=== PATIENT | female | born 1945 | race Caucasian/White ===

== ENCOUNTER 2024-02-08 07:10 | Day surgery (SDC) | payer MEDICARE, SELFPAY ==
[2024-02-04 10:08] VITALS: BMI 28.8
--- NOTE | 2024-02-04 14:40 | HO.ANESPROP2 ---
Documented by User: Cassie Brown NP 02/05/24 09:06 HPI - Anesthesia Eval Consult details Narrative: 78yo F for Right Cataract Extraction IOL Insertion No previous cataract on record [facility] Past Medical History Medical History (Updated 02/04/24 @ 09:57 by Mellisa Wong, JAMES) Osteoarthritis Hypertension Hyperlipidemia IFG (impaired fasting glucose) Subclinical hypothyroidism Osteopenia Pre-diabetes Cataract Surgical History Surgical History (Updated 02/04/24 @ 09:58 by Mellisa Wong, RN) History of eyelid surgery Hx of arthroscopy of knee History of lumpectomy of left breast Social History Social History (Updated 02/04/24 @ 10:12 by Mellisa Wong, JAMES) Patient Tobacco Use Status: Never used Tobacco Use of substances other than those prescribed or required for medical reasons: No Advance Directives: No Advance Directives Information Provided: Yes Advance Directives on File: No 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 Allergies Allergy/AdvReac Type Severity Reaction Status Date / Time Sulfa (Sulfonamide Allergy Rash, Verified 02/08/24 07:17 Antibiotics) dermatitis Home Medications ?Medication ?Instructions ?Recorded ?Confirmed ?Last Taken ?Type alendronate 35 mg tablet 35 mg PO QWEEK 02/04/24 02/04/24 Unknown History amlodipine 10 mg tablet 10 mg PO DAILY 02/04/24 02/04/24 Unknown History atorvastatin 40 mg tablet 40 mg PO DAILY 02/04/24 02/04/24 Unknown History losartan 100 1 tab PO DAILY 02/04/24 02/04/24 Unknown History mg-hydrochlorothiazide 25 mg tablet multivitamin 1 tab PO DAILY 02/04/24 02/04/24 Unknown History Exam Height,Weight and Vital Signs: Height 5 ft 4 in Weight 76.204 kg Assessment and Plan Assessment Anesthesia Assessment: Chart Reviewed Documented by User: Robi Frye MD 02/08/24 07:55 [facility] Past Medical History Medical History (Updated 05/02/24 @ 09:57 by Mellisa Wong RN) Osteoarthritis Hypertension Hyperlipidemia IFG (impaired fasting glucose) Subclinical hypothyroidism Osteopenia Pre-diabetes Cataract Family History Family history of problems with anesthesia: No Surgical History Surgical History (Updated 02/04/24 @ 09:58 by Mellisa Wong RN) History of eyelid surgery Hx of arthroscopy of knee History of lumpectomy of left breast History of Problems with Anesthesia: No Social History Social History (Updated 02/04/24 @ 10:12 by Mellisa Wong RN) Patient Tobacco Use Status: Never used Tobacco Use of substances other than those prescribed or required for medical reasons: No Advance Directives: No Advance Directives Information Provided: Yes Advance Directives on File: No 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 Allergies Allergy/AdvReac Type Severity Reaction Status Date / Time Sulfa (Sulfonamide Allergy Rash, Verified 02/08/24 07:17 Antibiotics) dermatitis Home Medications ?Medication ?Instructions ?Recorded ?Confirmed ?Last Taken ?Type alendronate 35 mg tablet 35 mg PO QWEEK 02/04/24 02/04/24 Unknown History amlodipine 10 mg tablet 10 mg PO DAILY 02/04/24 02/04/24 Unknown History atorvastatin 40 mg tablet 40 mg PO DAILY 02/04/24 02/04/24 Unknown History losartan 100 1 tab PO DAILY 02/04/24 02/04/24 Unknown History mg-hydrochlorothiazide 25 mg tablet multivitamin 1 tab PO DAILY 02/04/24 02/04/24 Unknown History Exam Airway Mallampati Class: II TM Dist: >3cm Neck ROM: Full Denture: Upper Partial: Lower Loose/Missing/Broken Teeth: No Heart: rrr Lungs: cta Assessment and Plan Assessment Anesthesia Assessment: Anesthesia Plan Discussed Final Anesthetic Review Family History of Problems with Anesthesia: No History of Problems with Anesthesia: No NPO: Yes ASA Class: II Final Preanesthetic Review: No Changes in Pt Med Stat, Meds/Allgs Chart Reviewed, Consent Obtained/Reviewed and Anes Risks/Benef Reviewed Patient Risk: Low Procedure Risk: Low Anesthetic Plan Anesthetic Plan: MAC: Disposition: Standard PACU
[2024-02-08 07:23] VITALS: PULSE 71; RESP 18; TEMP 36.1; O2SAT 98
[2024-02-08 07:26] VITALS: BMI 28.3
[2024-02-08] MEDS: Lactated Ringers 500 ML 50 ML IV (08:12)
[2024-02-08] MEDS: Tetracaine HCl/PF 0.5% Oph Sol 4 ML DROPS 1 DROP EYE-RIGHT (08:12)
[2024-02-08] MEDS: Cyclopentolate 1 % Ophth Sol 2 ML DRPBTL 1 DROP EYE-RIGHT ×3 (08:13→08:19)
[2024-02-08] MEDS: Phenylephrine HCL 2.5% Oph SoL 2 ML BOTTLE 1 DROP EYE-RIGHT ×3 (08:13→08:18)
[2024-02-08] MEDS: Ketorolac Tromethamine 0.5% Op 10 ML DROPS 1 DROP EYE-RIGHT ×3 (08:13→08:18)
[2024-02-08] MEDS: Tropicamide 1 % Ophth Sol 3 ML BTL 1 DROP EYE-RIGHT ×3 (08:14→08:19)
--- NOTE | 2024-02-08 08:58 | MHC.SHP ---
Pre-Procedural Eval Section A - 24 Hr Update-Section A only Date of Service: 02/08/24 The patient is an INPATIENT: No Changes since office visit: No Cold of Flu in the past 2 weeks, No New Medical Problems, No Changes in Medication and No Patient answered all questions The patient has been examined within 24 hours of the surgical procedure. The History & Physical has been completed within 30 days and I have reviewed it.: Yes Section B - Complete if H&P > 30 days Chief Complaint: Age-related nuclear cataract, right eye Allergies: Allergies Allergy/AdvReac Type Severity Reaction Status Date / Time Sulfa (Sulfonamide Allergy Rash, Verified 02/08/24 07:17 Antibiotics) dermatitis Plan Diagnosis/Plan: Unchanged I have reviewed the history and physical and performed a pertinent physical examination on my patient. No changes have occurred unless specified. Time Spent With Patient Time: Total time managing care of this patient today ____ minutes.
--- NOTE | 2024-02-08 08:59 | P.PCNO_ITS ---
Ophthalmology Procedure Procedure Date of Service: 02/08/24 Ophthalmology Viscoelastic: Healon Duet Dual Pack Pro Ophthalmology Lenses: IOL Acrysof MP - MA60AC (23.5) Procedure Notes: PREOPERATIVE DIAGNOSIS: Decreased visual acuity right eye secondary to cataract POSTOPERATIVE DIAGNOSIS: Same PROCEDURE: Right cataract extraction with intraocular lens insertion SURGEON: Sonu Gallo M.D. ANESTHESIA: Topical/MAC ESTIMATED BLOOD LOSS: None COMPLICATIONS: None After obtaining informed consent, the patient was brought to the operating room suite and placed in the supine position. After adequate sedation per anesthesia, topical drops of Tetracaine were given to the right eye. The eye was then prepped and draped in the usual sterile fashion. The operating room microscope was then positioned over the operative eye and a lid speculum placed. A paracentesis was created. Viscoelastic was then instilled into the anterior chamber. A three plane incision was then created temporally, utilizing a 2.85 mm keratome. Capsulotomy forceps were then utilized to create a circular tear capsulotomy. Hydrodissection and hydrodelineation were carried out until adequate mobilization of the nucleus occurred. Phacoemulsification was then utilized to remove the dense central nu cleus followed by removal of the cortical material utilizing the automated aspiration irrigation unit. Viscoelastic was instilled into the posterior capsular bag followed by placement of a posterior chamber intraocular lens without difficulty. The residual Viscoelastic was then removed utilizing the automated IA machine. The wound was checked and found to be watertight. The patient tolerated the procedure well and the lid speculum was removed. Intracameral injection of Vigamox 0.1 mL followed by a subtenon injection of Kenalog-40 0.2 mL were administered. The patient will be seen in the a.m.
[2024-02-08 09:24] VITALS: BP 153/57; PULSE 66; RESP 18; TEMP 36.3; O2SAT 99
[2024-02-08 09:39] VITALS: BP 147/53; PULSE 63; RESP 20; TEMP 36.3; O2SAT 97
== END 2024-02-08 09:47 | disposition home or self-care (01) ==
PROVIDERS: PCP Family Medicine; Visit Provider Ophthalmology
PROC: (CPT 66985; principal; 2024-02-08 08:20)
DX: H25.11 Age-related nuclear cataract, right eye (principal); H52.4 Presbyopia; H40.033 Anatomical narrow angle, bilateral; H52.03 Hypermetropia, bilateral; H35.363 Drusen (degenerative) of macula, bilateral; H18.413 Arcus senilis, bilateral; I10 Essential (primary) hypertension; Z88.2 Allergy status to sulfonamides; Z79.899 Other long term (current) drug therapy
CPT/HCPCS: 66984; J2250; J3010; J3301; V2630

== ENCOUNTER 2024-02-15 06:55 | Day surgery (SDC) | payer MEDICARE, SELFPAY ==
[2024-02-04 10:23] VITALS: BMI 28.8
--- NOTE | 2024-02-11 15:22 | HO.ANESPROP2 ---
Documented by User: Cassie Brown NP 02/11/24 15:23 HPI - Anesthesia Eval Consult details Narrative: 78yo F for Left Cataract Extraction IOL Insertion s/p Right eye 02/08/24: Fent 50, Midaz 1 PMFSH Past Medical History Medical History Osteoarthritis Hypertension Hyperlipidemia IFG (impaired fasting glucose) Subclinical hypothyroidism Osteopenia Pre-diabetes Cataract Family History Family history of problems with anesthesia: No Surgical History Surgical History History of eyelid surgery Hx of arthroscopy of knee History of lumpectomy of left breast History of Problems with Anesthesia: No Social History Social History Patient Tobacco Use Status: Never used Tobacco Use of substances other than those prescribed or required for medical reasons: No Advance Directives: No Advance Directives Information Provided: Yes Advance Directives on File: No 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[employer] Allergies Allergy/AdvReac Type Severity Reaction Status Date / Time Sulfa (Sulfonamide Allergy Rash, Verified 02/15/24 07:44 Antibiotics) dermatitis Home Medications ?Medication ?Instructions ?Recorded ?Confirmed ?Last Taken ?Type alendronate 35 mg tablet 35 mg PO QWEEK 02/04/24 02/15/24 02/14/24 History amlodipine 10 mg tablet 10 mg PO DAILY 02/04/24 02/15/24 02/14/24 History atorvastatin 40 mg tablet 40 mg PO DAILY 02/04/24 02/15/24 02/14/24 History losartan 100 1 tab PO DAILY 02/04/24 02/15/24 02/14/24 History mg-hydrochlorothiazide 25 mg tablet multivitamin 1 tab PO DAILY 02/04/24 02/15/24 02/14/24 History Exam Height,Weight and Vital Signs: Height 5 ft 4 in Weight 76.204 kg Assessment and Plan Final Anesthetic Review Family History of Problems with Anesthesia: No History of Problems with Anesthesia: No Documented by User: Adelia Benitez MD 02/15/24 07:52 PMFSH Past Medical History Medical History Osteoarthritis Hypertension Hyperlipidemia IFG (impaired fasting glucose) Subclinical hypothyroidism Osteopenia Pre-diabetes Cataract Surgical History Surgical History History of eyelid surgery Hx of arthroscopy of knee History of lumpectomy of left breast Social History Social History Patient Tobacco Use Status: Never used Tobacco Use of substances other than those prescribed or required for medical reasons: No Advance Directives: No Advance Directives Information Provided: Yes Advance Directives on File: No 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[employer] Allergies Allergy/AdvReac Type Severity Reaction Status Date / Time Sulfa (Sulfonamide Allergy Rash, Verified 02/15/24 07:44 Antibiotics) dermatitis Home Medications ?Medication ?Instructions ?Recorded ?Confirmed ?Last Taken ?Type alendronate 35 mg tablet 35 mg PO QWEEK 02/04/24 02/15/24 02/14/24 History amlodipine 10 mg tablet 10 mg PO DAILY 02/04/24 02/15/24 02/14/24 History atorvastatin 40 mg tablet 40 mg PO DAILY 02/04/24 02/15/24 02/14/24 History losartan 100 1 tab PO DAILY 02/04/24 02/15/24 02/14/24 History mg-hydrochlorothiazide 25 mg tablet multivitamin 1 tab PO DAILY 02/04/24 02/15/24 02/14/24 History Exam Airway Mallampati Class: II TM Dist: >3cm Neck ROM: Full Denture: Upper Partial: Lower Loose/Missing/Broken Teeth: Yes, Upper and Lower Heart: RRR Lungs: CTA Assessment and Plan Assessment Anesthesia Assessment: Anesthesia Plan Discussed and Chart Reviewed Final Anesthetic Review NPO: Yes ASA Class: II Final Preanesthetic Review: Meds/Allgs Chart Reviewed, Consent Obtained/Reviewed and Anes Risks/Benef Reviewed Patient Risk: Low Procedure Risk: Low Anesthetic Plan Anesthetic Plan: MAC: Disposition: Standard PACU
[2024-02-15] MEDS: Tetracaine HCl/PF 0.5% Oph Sol 4 ML DROPS 1 DROP EYE-LEFT (07:42)
[2024-02-15] MEDS: Cyclopentolate 1 % Ophth Sol 2 ML DRPBTL 1 DROP EYE-LEFT ×3 (07:43→08:07)
[2024-02-15] MEDS: Tropicamide 1 % Ophth Sol 3 ML BTL 1 DROP EYE-LEFT ×3 (07:46→08:10)
[2024-02-15] MEDS: Ketorolac Tromethamine 0.5% Op 10 ML DROPS 1 DROP EYE-LEFT ×3 (07:49→08:13)
[2024-02-15] MEDS: Phenylephrine HCL 2.5% Oph SoL 2 ML BOTTLE 1 DROP EYE-LEFT ×3 (07:52→08:16)
[2024-02-15] MEDS: Lactated Ringers 500 ML 50 ML IV (07:52)
[2024-02-15 08:06] VITALS: BP 145/43; PULSE 64; RESP 16; TEMP 36.3; O2SAT 98
--- NOTE | 2024-02-15 08:18 | MHC.SHP ---
Pre-Procedural Eval Section A - 24 Hr Update-Section A only Date of Service: 02/15/24 The patient is an INPATIENT: No Changes since office visit: No Cold of Flu in the past 2 weeks, No New Medical Problems, No Changes in Medication and No Patient answered all questions The patient has been examined within 24 hours of the surgical procedure. The History & Physical has been completed within 30 days and I have reviewed it.: Yes Section B - Complete if H&P > 30 days Chief Complaint: Age-related nuclear cataract, left eye Allergies: Allergies Allergy/AdvReac Type Severity Reaction Status Date / Time Sulfa (Sulfonamide Allergy Rash, Verified 02/15/24 07:44 Antibiotics) dermatitis Plan Diagnosis/Plan: Unchanged I have reviewed the history and physical and performed a pertinent physical examination on my patient. No changes have occurred unless specified. Time Spent With Patient Time: Total time managing care of this patient today ____ minutes.
--- NOTE | 2024-02-15 08:19 | HO.PNOPHT ---
Ophthalmology Procedure Procedure Date of Service: 02/15/24 Ophthalmology Viscoelastic: Healon Duet Dual Pack Pro Ophthalmology Lenses: IOL Acrysof MP - MA60AC (27.5) Procedure Notes: PREOPERATIVE DIAGNOSIS: Decreased visual acuity left eye secondary to cataract POSTOPERATIVE DIAGNOSIS: Same PROCEDURE: Left cataract extraction with intraocular lens insertion SURGEON: Sonu Gallo M.D. ANESTHESIA: Topical/MAC ESTIMATED BLOOD LOSS: None COMPLICATIONS: None After obtaining informed consent, the patient was brought to the operation room suite and placed in the supine position. After adequate sedation per anesthesia, topical drops of Tetracaine were given to the left eye. The eye was then prepped and draped in the usual sterile fashion. The operating room microscope was then positioned over the operative eye and a lid speculum placed. A paracentesis was created. Viscoelastic was then instilled into the anterior chamber. A three plane incision was then created temporally, utilizing a 2.85 mm keratome. Capsulotomy forceps were then utilized to create a circular tear capsulotomy. Hydrodissection and hydrodelineation were carried out until adequate mobilization of the nucleus occurred. Phacoemulsification was then utilized to remove the dense central nucleus followed by removal of the cortical material utilizing the automated aspiration irrigation unit. Viscoat elastic was instilled into the posterior capsular bag followed by placement of a posterior chamber intraocular lens without difficulty. The residual Viscoat elastic was then removed utilizing the automated IA machine. The wound was check and found to be watertight. The patient tolerated the procedure well and the lid speculum was removed. Intracameral injection of Vigamox 0.1 mL followed by a subtenon injection of Kenalog-40 0.2 mL were administered. The patient will be seen in the a.m.
[2024-02-15 08:44] VITALS: BP 117/50; PULSE 58; RESP 17; TEMP 36.4; O2SAT 99
[2024-02-15 08:47] VITALS: BMI 28.3
== END 2024-02-15 08:46 | disposition home or self-care (01) ==
PROVIDERS: PCP Family Medicine; Visit Provider Ophthalmology
PROC: (CPT 66985; principal; 2024-02-15 08:20)
DX: H25.12 Age-related nuclear cataract, left eye (principal); H52.4 Presbyopia; H40.033 Anatomical narrow angle, bilateral; H18.413 Arcus senilis, bilateral; H52.03 Hypermetropia, bilateral; H35.363 Drusen (degenerative) of macula, bilateral; I10 Essential (primary) hypertension; Z79.1 Long term (current) use of non-steroidal anti-inflammatories (NSAID); Z79.899 Other long term (current) drug therapy; Z88.2 Allergy status to sulfonamides
CPT/HCPCS: 66984; J2250; J2405; J3010; J3301; V2630